=== PATIENT | male | born 2000 | race Caucasian/White ===

== ENCOUNTER 2018-06-21 18:16 | Emergency (ER) | payer SELFPAY ==
[~2018-06-21] VITALS: Ht 180.3 cm; Wt 110.0 kg
[2018-06-21] MEDS ORDERED: OLAN15TA3 PO (18:37)
[2018-06-21] MEDS ORDERED: MORPHINE SULFATE 4 MG/ML CPJ (NOT FOR IM USE) IV ONE ×2 (19:00→20:00)
[2018-06-21 20:22] LABS: BASOPHILS % 0.6 % (0.0-2.0); CHLORIDE 106 mEq/L (98-107); EOSINOPHILS % 0.7 % (0.0-5.0); HEMOGLOBIN. 14.8 g/dL (14.0-18.0); LYMPHOCYTES % 14.8 % (20.0-50.0); MEAN CORPUSCULAR HEMOGLOBIN 31.1 pg (28.0-32.0); MEAN CORPUSCULAR VOLUME 90.3 fL (80.0-94.0); MEAN PLATELET VOLUME 9.7 fl (7.4-10.4); MONOCYTES % 8.1 % (2.0-8.0); NEUTROPHILS % 75.8 % (40.0-76.0); PLATELET 146 x1000/uL (130-400); RED BLOOD CELL COUNT 4.77 mill/uL (4.7-6.1); RED CELL DISTRIBUTION WIDTH 13.3 % (11.6-14.6)
[2018-06-21 20:24] LABS: PROTHROMBIN TIME 10.3 sec (9.1-11.1)
[2018-06-21] MEDS ORDERED: CEFAZOLIN 1000MG PREMIX 50 ML IV ONE (21:30)
[2018-06-21] MEDS ORDERED: HYDROMORPHONE HCL/PF 2MG/ML CPJ IV ONE ×2 (22:00→22:45)
[2018-06-22] LABS: CLARITY URINE CLEAR (CLEAR); COLOR URINE YELLOW (YELLOW); KETONES URINE TRACE (NEGATIVE); LEUKOCYTE ESTERASE URINE NEGATIVE (NEGATIVE); NITRITE URINE NEGATIVE (NEGATIVE); OCCULT BLOOD URINE NEGATIVE (NEGATIVE); PROTEIN URINE NEGATIVE (NEGATIVE); SPECIFIC GRAVITY URINE 1.025 (1.005-1.030); UROBILINOGEN URINE 0.2 E.U./dL (0.2-1.0)
[2018-06-22] MEDS ORDERED: HYDROMORPHONE HCL/PF 2MG/ML CPJ IV ONE (00:30)
[2018-06-22] MEDS ORDERED: KETOROLAC 30MG/ML VIAL IV ONE (01:30)
[2018-06-22 01:59] VITALS: BP 153/96
== END 2018-06-22 02:00 | disposition short-term general hospital (02) ==
LOC: ER 18:16
DX: S52.592B Other fractures of lower end of left radius, initial encounter for open fracture type I or II (principal); S52.612B Displaced fracture of left ulna styloid process, initial encounter for open fracture type I or II; V00.131A Fall from skateboard, initial encounter; Y93.51 Activity, roller skating (inline) and skateboarding; Y92.89 Other specified places as the place of occurrence of the external cause; F17.210 Nicotine dependence, cigarettes, uncomplicated
CPT/HCPCS: 29125; 36415; 73090; 73630; 80053; 81003; 85025; 85610; 96365; 96375; 96376; 99285; J0690; J1170; J1885; J2270

== ENCOUNTER 2019-06-30 12:08 | Emergency (ER) | payer MEDICAID ==
[~2019-06-30 12:08] MED LIST: OLAN15TA3 PO
== END 2019-06-30 14:05 | disposition left against medical advice (07) ==
LOC: ER 12:08
DX: Z53.21 Procedure and treatment not carried out due to patient leaving prior to being seen by health care provider (principal)

== ENCOUNTER 2021-04-03 13:17 | Emergency (ER) | payer MEDICAID ==
[~2021-04-03] VITALS: Ht 180.3 cm; Wt 120.0 kg
[2021-04-03] MEDS ORDERED: TETANUS, DIPHTHERIA, PERTUSSIS VAC/PF 0.5ML (>10YR OLD) IM ONE (13:45)
[2021-04-03] MEDS ORDERED: IBUPROFEN 400MG TABLET PO ONE (13:45)
[2021-04-03] MEDS ORDERED: ACETAMINOPHEN 325MG TABLET PO ONE (13:45)
[2021-04-03] MEDS ORDERED: IBUP-2029 MT (14:39)
[2021-04-03 14:49] VITALS: BP 137/87
== END 2021-04-03 14:58 | disposition home or self-care (01) ==
LOC: ER 13:17
DX: S60.221A Contusion of right hand, initial encounter (principal); W26.8XXA Contact with other sharp object(s), not elsewhere classified, initial encounter; Y93.89 Activity, other specified; Y92.89 Other specified places as the place of occurrence of the external cause; Y99.8 Other external cause status
CPT/HCPCS: 73130; 90471; 90715; 99283

== ENCOUNTER 2021-11-16 10:42 | Emergency (ER) | payer MEDICAID, OTHER ==
[~2021-11-16] VITALS: Ht 167.6 cm; Wt 76.0 kg
[~2021-11-16 10:42] MED LIST changes: +IBUP-2029 MT
[2021-11-16] MEDS ORDERED: IBUPROFEN 600MG TABLET PO STA (10:52)
[2021-11-16 11:27] VITALS: BP 154/104
[2021-11-16] MEDS ORDERED: IBUP-2030 PO (12:24)
== END 2021-11-16 12:30 | disposition left against medical advice (07) ==
LOC: ER 10:42
DX: S62.346A Nondisplaced fracture of base of fifth metacarpal bone, right hand, initial encounter for closed fracture (principal); W22.8XXA Striking against or struck by other objects, initial encounter; Y93.89 Activity, other specified; Y92.89 Other specified places as the place of occurrence of the external cause
CPT/HCPCS: 73130; 99283

== ENCOUNTER 2021-12-15 19:42 | Emergency (ER) | payer OTHER ==
[~2021-12-15] VITALS: Ht 175.3 cm; Wt 105.0 kg
[~2021-12-15 19:42] MED LIST changes: +IBUP-2030 PO
[2021-12-15] MEDS ORDERED: LORA-250 MT (20:35)
[2021-12-15 20:40] VITALS: BP 101/88
== END 2021-12-15 20:40 | disposition home or self-care (01) ==
LOC: ER 19:42
DX: Z76.0 Encounter for issue of repeat prescription (principal); F41.9 Anxiety disorder, unspecified; E11.9 Type 2 diabetes mellitus without complications; I10 Essential (primary) hypertension
CPT/HCPCS: 99283

== ENCOUNTER 2022-05-27 16:55 | Emergency (ER) | payer OTHER ==
[~2022-05-27] VITALS: Ht 175.3 cm; Wt 104.0 kg
[~2022-05-27 16:55] MED LIST changes: +LORA-250 MT
[2022-05-27 18:10] LABS: BASOPHILS % 0.9 % (0.0-2.0); EOSINOPHILS % 1.7 % (0.0-5.0); HEMATOCRIT. 43.5 % (42.0-52.0); HEMOGLOBIN. 14.9 g/dL (14.0-18.0); LYMPHOCYTES % 22.5 % (20.0-50.0); MEAN CORPUSCULAR HEMOGLOBIN 30.6 pg (28.0-32.0); MEAN CORPUSCULAR VOLUME 88.9 fL (80.0-94.0); MONOCYTES % 5.9 % (2.0-8.0); PLATELET 181 x1000/uL (130-400); RED BLOOD CELL COUNT 4.89 mill/uL (4.7-6.1); RED CELL DISTRIBUTION WIDTH 13.4 % (11.6-14.6)
[2022-05-27 18:13] LABS: CLARITY URINE TURBID (CLEAR); COLOR URINE YELLOW (YELLOW); KETONES URINE TRACE (NEGATIVE); LEUKOCYTE ESTERASE URINE NEGATIVE (NEGATIVE); NITRITE URINE NEGATIVE (NEGATIVE); OCCULT BLOOD URINE NEGATIVE (NEGATIVE); PH URINE 7.5 (4.5-8.0); PROTEIN URINE NEGATIVE (NEGATIVE); SPECIFIC GRAVITY URINE 1.026 (1.005-1.030)
[2022-05-27 18:17] LABS: CHLORIDE 105 mEq/L (98-107)
[2022-05-27 18:26] LABS: ETHANOL BLOOD < 10 mg/dL
[2022-05-27 18:29] LABS: *AMPHETAMINES SCREEN URINE NEGATIVE (NEGATIVE); *BARBITURATES SCREEN URINE NEGATIVE (NEGATIVE); *BENZODIAZEPINES SCREEN URINE NEGATIVE (NEGATIVE); *COCAINE SCREEN URINE NEGATIVE (NEGATIVE); CANNABINOID URINE SCREEN PRESUMTIVE POSITIVE (NEGATIVE); METHADONE URINE SCREEN NEGATIVE (NEGATIVE); OPIATES URINE SCREEN NEGATIVE (NEGATIVE); PHENCYCLIDINE URINE SCREEN NEGATIVE (NEGATIVE)
[2022-05-28 06:30] VITALS: BP 114/68
== END 2022-05-28 13:03 | disposition home or self-care (01) ==
LOC: ER 17:19
DX: R45.851 Suicidal ideations (principal); F41.9 Anxiety disorder, unspecified; F31.9 Bipolar disorder, unspecified; E11.9 Type 2 diabetes mellitus without complications; I10 Essential (primary) hypertension; F20.9 Schizophrenia, unspecified; Z20.822 Contact with and (suspected) exposure to COVID-19
CPT/HCPCS: 36415; 80053; 80305; 80307; 80320; 80329; 81003; 85025; 87426; 99285; C9803; G0480

== ENCOUNTER 2022-06-17 18:49 | Emergency (ER) | payer OTHER ==
[~2022-06-17] VITALS: Ht 177.8 cm; Wt 98.0 kg
[2022-06-17 18:52] VITALS: BP 143/97
[2022-06-17 23:23] LABS: CHLORIDE 102 mEq/L (98-107)
[2022-06-17 23:32] LABS: ETHANOL BLOOD < 10 mg/dL
[2022-06-17 23:34] LABS: BASOPHILS % 0.6 % (0.0-2.0); HEMATOCRIT. 44.3 % (42.0-52.0); HEMOGLOBIN. 15.1 g/dL (14.0-18.0); LYMPHOCYTES % 28.7 % (20.0-50.0); MEAN CORPUSCULAR HEMOGLOBIN 30.5 pg (28.0-32.0); MEAN CORPUSCULAR VOLUME 89.4 fL (80.0-94.0); MONOCYTES % 6.3 % (2.0-8.0); NEUTROPHILS % 63.4 % (40.0-76.0); PLATELET 192 x1000/uL (130-400); RED BLOOD CELL COUNT 4.95 mill/uL (4.7-6.1); RED CELL DISTRIBUTION WIDTH 13.4 % (11.6-14.6)
[2022-06-18 00:13] LABS: CLARITY URINE CLEAR (CLEAR); COLOR URINE YELLOW (YELLOW); KETONES URINE NEGATIVE (NEGATIVE); LEUKOCYTE ESTERASE URINE NEGATIVE (NEGATIVE); NITRITE URINE NEGATIVE (NEGATIVE); OCCULT BLOOD URINE NEGATIVE (NEGATIVE); PROTEIN URINE NEGATIVE (NEGATIVE); SPECIFIC GRAVITY URINE 1.007 (1.005-1.030); UROBILINOGEN URINE 0.2 E.U./dL (0.2-1.0)
[2022-06-18 00:37] LABS: *AMPHETAMINES SCREEN URINE PRESUMTIVE POSITIVE (NEGATIVE); *BARBITURATES SCREEN URINE NEGATIVE (NEGATIVE); *BENZODIAZEPINES SCREEN URINE NEGATIVE (NEGATIVE); *COCAINE SCREEN URINE NEGATIVE (NEGATIVE); CANNABINOID URINE SCREEN PRESUMTIVE POSITIVE (NEGATIVE); METHADONE URINE SCREEN NEGATIVE (NEGATIVE); OPIATES URINE SCREEN NEGATIVE (NEGATIVE); PHENCYCLIDINE URINE SCREEN NEGATIVE (NEGATIVE)
== END 2022-06-18 06:03 | disposition left against medical advice (07) ==
LOC: ER 18:56
DX: Z53.21 Procedure and treatment not carried out due to patient leaving prior to being seen by health care provider (principal)
CPT/HCPCS: 36415; 80053; 80305; 80307; 80320; 80329; 81003; 82962; 85025; 99283; G0480

== ENCOUNTER 2022-06-18 15:47 | Emergency (ER) | payer OTHER ==
[~2022-06-18] VITALS: Ht 175.3 cm; Wt 105.0 kg
[2022-06-18 16:03] VITALS: BP 124/78
== END 2022-06-18 19:18 | disposition left against medical advice (07) ==
LOC: ER 15:47
DX: Z53.21 Procedure and treatment not carried out due to patient leaving prior to being seen by health care provider (principal)